=== PATIENT | female | born 1955 | race Two or more races ===

== ENCOUNTER 2023-02-23 00:45 | Emergency (ER) | payer OTHER ==
[~2023-02-23] VITALS: Ht 162.6 cm; Wt 65.8 kg
[2023-02-23] MEDS ORDERED: GLUMETZA1000 MG PO (01:19)
[2023-02-23] MEDS ORDERED: LYRICA50 MG PO (01:20)
[2023-02-23] MEDS ORDERED: LIPITOR40 M1 PO (01:20)
[2023-02-23] MEDS ORDERED: TOPROL XL25 M1 PO (01:20)
[2023-02-23] MEDS ORDERED: ARICEPT10 MG PO (01:21)
[2023-02-23] MEDS ORDERED: GLIMEPIRIDE4 MG PO (01:21)
[2023-02-23] MEDS ORDERED: AVAPRO150 MG PO (01:21)
[2023-02-23] MEDS ORDERED: LANTUS SOL100 UNIT/1 SUBCUTANEO (01:22)
[2023-02-23 07:02] LABS: HEMATOCRIT 36.7 % (36.0-45.00); HEMOGLOBIN 12.4 g/dL (12.0-15.00); MEAN CELL VOLUME 81.2 fL (80.00-100.00); MEAN CORPUSCULAR HEMOGLOBIN 27.5 pg (27.00-32.0); MEAN CORPUSCULAR HGB CONC 33.9 g/dl (32.0-36.0); PLATELET COUNT 321 K/uL (150-450); RED BLOOD COUNT 4.52 M/uL (4.00-6.00); RED CELL DISTRIBUTION WIDTH 15.1 % (11.5-14.5)
[2023-02-23 07:20] LABS: ALBUMIN 3.4 gm/dL (3.4-5.0); BILIRUBIN TOTAL 0.54 mg/dL (0.3-1.2); CREATININE SERUM 0.76 mg/dL (0.55-1.02); GFR 76.37; GLOBULINA 3.8 G/DL (2.4-3.5); POTASSIUM 3.27 mEq/L (3.5-5.1); TOTAL PROTEIN 7.2 gm/dL (6.4-8.2)
== END 2023-02-23 12:43 | disposition home or self-care (01) ==
LOC: ER 00:45
PROVIDERS: General Practice
DX: B34.9 Viral infection, unspecified (principal); I10 Essential (primary) hypertension; E11.9 Type 2 diabetes mellitus without complications; Z79.4 Long term (current) use of insulin; Z79.84 Long term (current) use of oral hypoglycemic drugs

== ENCOUNTER 2024-01-21 13:49 | Emergency (ER) | payer OTHER ==
[~2024-01-21] VITALS: Ht 162.6 cm; Wt 77.1 kg
[~2024-01-21 13:49] MED LIST: ARICEPT10 MG PO; AVAPRO150 MG PO; GLIMEPIRIDE4 MG PO; GLUMETZA1000 MG PO; LANTUS SOL100 UNIT/1 SUBCUTANEO; LIPITOR40 M1 PO; LYRICA50 MG PO; TOPROL XL25 M1 PO
[2024-01-21] MEDS ORDERED: INSULIN REGULAR, HUMAN 1,000 UNIT/10 ML UNITS SUBCUTANEO ONE ×2 (14:15→19:45)
[2024-01-21] MEDS ORDERED: 0.9 % SODIUM CHLORIDE 1,000 ML IV ONE (14:30)
[2024-01-21 14:44] LABS: HEMATOCRIT 36.1 % (36.0-45.00); HEMOGLOBIN 11.8 g/dL (12.0-15.00); MEAN CELL VOLUME 78.3 fL (80.00-100.00); MEAN CORPUSCULAR HEMOGLOBIN 25.6 pg (27.00-32.0); MEAN CORPUSCULAR HGB CONC 32.7 g/dl (32.0-36.0); PLATELET COUNT 309 K/uL (150-450); RED BLOOD COUNT 4.61 M/uL (4.00-6.00); RED CELL DISTRIBUTION WIDTH 15.6 % (11.5-14.5)
[2024-01-21 14:56] LABS: INR 1.1; PARTIAL THROMBOPLASTIN TIME 29.1 SECONDS (22.0-34.0); PROTHROMBIN TIME 11.9 SECONDS (9.0-11.5)
[2024-01-21 15:03] LABS: ALBUMIN 3.3 gm/dL (3.4-5.0); BILIRUBIN TOTAL 0.55 mg/dL (0.3-1.2); CALCIUM 9.1 mg/dL (8.5-10.1); CREATININE SERUM 0.96 mg/dL (0.55-1.02); GFR 58.15; GLOBULINA 4.1 G/DL (2.4-3.5); POTASSIUM 3.02 mEq/L (3.5-5.1); TOTAL PROTEIN 7.4 gm/dL (6.4-8.2)
[2024-01-21 16:48] LABS: ABG PH 7.447 (7.35-7.45); ABG PO2 71.8 mmHg (80-100); ABG pCO2 44.2 mmHg (35-45); BASE EXCESS 5.1 mmol/l; BICARBONATE 29.9 mmol/l (23-25); SaO2 95.2 %; Tco2 31.2 mmol/l
[2024-01-21 17:01] LABS: allen test SATISFACTORY; o2 21 %; puncture site RADIAL LEFT
== END 2024-01-21 23:34 | disposition home or self-care (01) ==
LOC: ER 13:49
PROVIDERS: General Practice
DX: U07.1 COVID-19 (principal); E11.65 Type 2 diabetes mellitus with hyperglycemia; Z79.4 Long term (current) use of insulin; Z79.84 Long term (current) use of oral hypoglycemic drugs; I10 Essential (primary) hypertension; R53.1 Weakness
CPT/HCPCS: 36415; 70450; 71045; 82803; 93005; 96365; 99284; J3490

== ENCOUNTER 2024-04-15 19:32 | Emergency (ER) | payer OTHER ==
[~2024-04-15] VITALS: Ht 157.5 cm; Wt 90.7 kg
[2024-04-15] MEDS ORDERED: ONDANSETRON HCL 2 MG/ML VIAL IV STA (19:59)
[2024-04-15] MEDS ORDERED: 0.9 % SODIUM CHLORIDE 1,000 ML IV SCH (19:59)
[2024-04-15] MEDS ORDERED: FAMOTIDINE/PF 20 MG in 0.9 % SODIUM CHLORIDE 8 ML IV PUSH STA ×2 (20:00→23:00)
[2024-04-15 20:32] LABS: HEMOGLOBIN 12.8 g/dL (12.0-15.00); MEAN CELL VOLUME 75.8 fL (80.00-100.00); MEAN CORPUSCULAR HEMOGLOBIN 25.5 pg (27.00-32.0); MEAN CORPUSCULAR HGB CONC 33.7 g/dl (32.0-36.0); PLATELET COUNT 348 K/uL (150-450); RED BLOOD COUNT 5.01 M/uL (4.00-6.00); RED CELL DISTRIBUTION WIDTH 16.1 % (11.5-14.5)
[2024-04-15 21:00] LABS: CALCIUM 8.9 mg/dL (8.5-10.1); CREATININE SERUM 0.8 mg/dL (0.55-1.02); GFR 71.76; POTASSIUM 3.45 mEq/L (3.5-5.1)
[2024-04-15 22:30] LABS: PH,URINE 5.5 (5.0-8.0); URINE APPEARANCE Clear; URINE BILIRRUBIN Negative (NEGATIVE); URINE BLOOD Negative; URINE COLOR Yellow; URINE LEUKOCYTE Negative; URINE NITRATE Negative; URINE PROTEIN 30 (NEGATIVE); URINE UROBILINOGEN 0.2 E.U./dl
[2024-04-15 22:34] LABS: URINE BACTERIA 73.4 uL (0.0-1933); URINE EPITHELIAL CELLS 57.4 uL (0.0-38.8); URINE RBC 4.8 uL (0.0-20.8); URINE WBC 45.4 uL (0.0-23.2)
[2024-04-15 22:44] LABS: URINE CAST 0.58 uL (0.0-1.40); URINE GLUCOSE >=1000 MG/DL (NEGATIVE); URINE KETONE 40 (NEGATIVE)
== END 2024-04-16 00:08 | disposition home or self-care (01) ==
LOC: ER 19:32
PROVIDERS: Emergency Medicine
DX: K29.70 Gastritis, unspecified, without bleeding (principal); R11.10 Vomiting, unspecified; I10 Essential (primary) hypertension; E11.9 Type 2 diabetes mellitus without complications; Z79.84 Long term (current) use of oral hypoglycemic drugs
CPT/HCPCS: 36415; 96365; 99282; J2405; J7030